=== PATIENT | female | born 1990 | race Caucasian/White ===

== ENCOUNTER → 2019-09-13 | Outpatient (CLI) | payer OTHER ==
[~2019-09-13] MED LIST: LEVO100T5 PO; MELA5TAB20 PO
== END | disposition home or self-care (01) ==
LOC: SURGPAT 12:00
PROVIDERS: ATTEND Obstetrics & Gynecology
DX: Z11.59 Encounter for screening for other viral diseases (principal)
CPT/HCPCS: U0003-CS

== ENCOUNTER 2019-09-16 06:56 | Day surgery (SDC) | payer OTHER ==
[~2019-09-16 06:56] MED LIST changes: +BUPIVACAINE-EPI 0.25%-1:200000 MPF 30 ML VIAL. ONE; +DEXAMETHASONE SOD PHOS 4 MG/ML VIAL ONE; +FERRIC SUBSULFATE 8 ML SOL.W.APPL TP ONE; +LIDOCAINE 2% PF 5 ML VIAL. ONE; +MIDAZOLAM HCL/PF 2 MG/2 ML VIAL. ONE; +ONDANSETRON PF 4 MG/2 ML VIAL. ONE; +PROPOFOL 10 MG/ML (20ML) VIAL. IV ONE; +fentaNYL PF VIAL 100 MCG/2 ML VIAL ONE
[2019-09-16] MEDS ORDERED: IV RINGERS,LACTATED 1000ML 1,000 ML IV SCH ×2 (07:45→09:13)
[2019-09-16] MEDS ORDERED: MIDAZOLAM HCL/PF 2 MG/2 ML VIAL. ONE (08:23)
[2019-09-16] MEDS ORDERED: SEVOFLURANE 31 TO 60 MINUTES. IH ONE (08:46)
[2019-09-16] MEDS ORDERED: KETOROLAC 30 MG/ML VIAL. ONE (08:46)
[2019-09-16] MEDS ORDERED: ONDANSETRON PF 4 MG/2 ML VIAL. IVP PRN (09:15)
[2019-09-16] MEDS ORDERED: PROCHLORPERAZINE 10 MG/2 ML VIAL. IVP PRN (09:15)
[2019-09-16] MEDS ORDERED: HYDROmorphone 2 MG/ML VIAL IVP PRN (09:15)
[2019-09-16] MEDS ORDERED: LIDOCAINE 1% PF 2 ML VIAL. ID PRN (09:15)
[2019-09-16] MEDS ORDERED: MORPHINE SULFATE 2 MG/ML VIAL. IVP PRN (09:15)
[2019-09-16] MEDS ORDERED: fentaNYL PF VIAL 100 MCG/2 ML VIAL IVP PRN ×2 (09:15)
--- NOTE | 2019-09-16 09:21 | PDOC ---
BRIEF OPERATIVE NOTE Date: Sep 16, 2019 Pre-Op Diagnosis CHANTELL 2 Post-Op Diagnosis same Procedure Performed LEEP Surgeon Dr. Mary Saucedo Anesthesiologist see OR records Anesthesia Type: General Blood Loss 2cc IV Fluid see anesthesia records Urine Output straight cath prior Specimens Obtained ectocervical specimen Findings TZ columnar cells; IUD strings seen Complications none Operative Note [id number] MARY SAUCEDO MD Sep 16, 2019 09:21
--- NOTE | 2019-09-16 09:29 | OP ---
DATE OF SURGERY: 09/16/2019 PREOPERATIVE DIAGNOSIS: Atypical squamous cells of undetermined significance with human papillomavirus positive on her Pap with cervical intraepithelial neoplasia 2 on colposcopy biopsy in the office. POSTOPERATIVE DIAGNOSIS: Atypical squamous cells of undetermined significance with human papillomavirus positive on her Pap with cervical intraepithelial neoplasia 2 on colposcopy biopsy in the office. PROCEDURE: Loop electrosurgical excision procedure. SURGEON: Ev Saucedo MD RECORD MAKER: OR personnel. ANESTHESIA: General. IV FLUIDS: Please see anesthesia records. BLOOD LOSS: 2 mL. URINE OUTPUT: With a straight cath prior to procedure. SPECIMEN: Ectocervical specimen. FINDINGS: She had an inflamed transformation zone that was columnar glandular in nature and her IUD strings were seen. COMPLICATIONS: None. DESCRIPTION OF PROCEDURE: This patient was taken to the operating room where general anesthesia was placed. The patient was placed in dorsal lithotomy position in Fran stirrups. The patient's external prep was just a soapy water. She was straight cathed prior to procedure. Upon my arrival, a timeout was performed. Once everyone agreed on the patient, the site, the procedure. A blue laser safe speculum was placed in the patient's vagina and vinegar was used to cleanse the cervix. A medium-size loop was picked. The strings were moved down and I did the top half on a cut of 50, it was on a 50/70 for cut and coag and then I moved the strings up and held in with DeBakeys and did the lower half. Sent them in 2 separate specimens. The top half was tagged with a stitch. Once this was done, the ball cautery was put on and on coagulation setting of that blend 50/70, it was used to obtain hemostasis. There was very minimal bleeding. There were no complications. Once hemostasis was assured, the speculum was removed and the procedure was ended. The patient was awakened from anesthesia and brought to recovery room in stable condition. EV SAUCEDO MD DR: GAUTAM/bayron JOB#: [id number] / [id number]
[2019-09-16] MEDS ORDERED: SIMETHICONE 80 MG TAB.CHEW PO PRN (09:30)
[2019-09-16] MEDS ORDERED: MAG HYDROX/ALUMINUM HYD/SIMETH 30 ML ORAL.SUSP PO PRN (09:30)
[2019-09-16] MEDS ORDERED: NALOXONE 0.4 MG/ML VIAL. IV PRN (09:30)
[2019-09-16] MEDS ORDERED: 0.9 % SODIUM CHLORIDE 10 ML DISP.SYRIN. IV PRN (09:30)
[2019-09-16] MEDS ORDERED: diphenhydrAMINE 50 MG/ML VIAL IV PRN (09:30)
[2019-09-16] MEDS ORDERED: HYDROcodone/APAP 5/325MG 1 TAB TABLET PO PRN (09:30)
[2019-09-16] MEDS ORDERED: CALCIUM CARBONATE 500 MG TAB.CHEW PO PRN (09:30)
[2019-09-16] MEDS ORDERED: diphenhydrAMINE HCL 25 MG CAPSULE PO PRN (09:30)
[2019-09-16 10:05] VITALS: BP 122/78
--- NOTE | 2019-09-20 15:07 | PATHOLOGY ---
[facility] Accession Number: [id number] . 01 Material submitted: . cervix - CERVICAL BIOPSY . 01 Clinical history: . CHANTELL 2 . 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 - Ectocervical, endocervical, and deep margins negative for dysplasia. - Chronic cervicitis with focal squamous metaplasia. - Nabothian cysts. (JPM/db/arlyn; 09/20/2019) LBQ 09/20/2019 0909 Local . 02 Comment: Sections of the cervical biopsy/LEEP show focal moderate to severe dysplasia (CHANTELL II-III). The ectocervical, endocervical, and deep margins are negative for dysplasia. The case is also examined by Dr. Arias, who concurs with the diagnosis. (JPM:arlyn; 09/20/2019) . 02 Electronically signed: . Nicola Allen MD, Pathologist NPI- [id number] . 01 Gross description: . The specimen is received in formalin, labeled "Miladys Gill, cervical biopsy, top stitch". Received are two segments of garcia cervical tissue measuring 1.4 x 1.0 x 0.8 and 2.2 x 1.0 x 0.5 cm in greatest dimensions. The smaller segment has an attached suture designating this as the top aspect. The ectocervical mucosa is pink-garcia, smooth and glistening to granular in appearance. The surgical margins are inked. The specimen is serially sectioned and entirely submitted in cassettes A1 through A4. (CAA; 09/16/2019) QAC/QAC 09/17/2019 1659 Local . 02 Pathologist provided ICD-10: N87.1, N72, N88.8 . 02 CPT . 973359 Specimen Comment: A courtesy copy of this report has been sent to [phone] Specimen Comment: Report sent to [facility]formed [facility]: [facility] [address] [id number] MD Momo Valencia MD Phone: [phone] [facility]formed [facility]: [facility] [address] [place], [place] [id number] MD Nicola Allen MD Phone: [phone]
== END 2019-09-16 10:30 | disposition home or self-care (01) ==
LOC: SURG 06:56 → EDUNIT# 08:30 → SURG 10:30
PROVIDERS: ATTEND Obstetrics & Gynecology
DX: D06.7 Carcinoma in situ of other parts of cervix (principal); R87.810 Cervical high risk human papillomavirus (HPV) DNA test positive; E03.9 Hypothyroidism, unspecified; F41.9 Anxiety disorder, unspecified; Z88.0 Allergy status to penicillin; Z87.891 Personal history of nicotine dependence; Z98.890 Other specified postprocedural states
CPT/HCPCS: 57522; 81025; 88307; A7015; J1100; J1885; J2250; J2405; J2704; J3010; J3490